=== PATIENT | female | born 1950 | race Caucasian/White ===

== ENCOUNTER 2018-01-01 09:54 | Emergency (ER) | payer MEDICARE, OTHER ==
[~2018-01-01] VITALS: Ht 157.5 cm; Wt 101.2 kg
--- OUTSIDE RECORDS SUMMARY | ~2018-01-01 | XMS | Clinical Summary ---
Demographics + + + | Address | [address] | | | [place] [address] | + + + | Home Phone | | + + + | Preferred Language | Unknown | + + + | Marital Status | | + + + | Scientology Affiliation | CHR | + + + | Race | White | + + + | Ethnic Group | Not or | + + + Author + + + | Author | [facility] | + + + | Organization | [facility] | + + + | Address | Unknown | + + + | Phone | Unavailable | + + + Support + + +---------+ + | Name | Relationship | Address | Phone | + + +---------+ + | Hank Ojeda | ECON | Unknown | | + + +---------+ + Care Team Providers + +------+ + | Care Hearing Care Professional Name | Role | Phone | + +------+ + | Chitra Lopez MD | PP | Unavailable | + +------+ + Source Comments JUDSON is fully live on both [facility] Ambulatory and [facility] InPatient.[facility] Allergies + + + + + + | Active Allergy | Reactions | Severity | Noted | Comments | | | | | Date | | + + + + + + | Penicillin G | Hives | High | 05/28/19 | | | | | | 15 | | + + + + + + | Sulfa (Sulfonamide | Hives | High | 05/28/19 | | | Antibiotics) | | | 15 | | + + + + + + Current Medications + + +-------+---------+------+------+-------+ | Prescription | Sig. | Disp. | Refills | Star | End | Statu | | | | | | t | Date | s | | | | | | Date | | | + + +-------+---------+------+------+-------+ | fexofenadine 60 mg | Take 60 mg by mouth | | | | | Activ | | oral | two times daily. | | | | | e | | tabletIndications: | Indications: | | | | | | | Seasonal Allergic | Seasonal Allergic | | | | | | | Rhinitis | Rhinitis | | | | | | + + +-------+---------+------+------+-------+ | ibuprofen 400 mg | Take 400 mg by mouth | | | | | Activ | | oral | every six hours as | | | | | e | | tabletIndications: | needed. Indications: | | | | | | | Pain | Pain | | | | | | + + +-------+---------+------+------+-------+ Active Problems Not on file Social History + +-------+ +--------+------+ | Tobacco Use | Types | Packs/Day | Years | Date | | | | | Used | | + +-------+ +--------+------+ | Never Smoker | | | | | + +-------+ +--------+------+ + +---+---+---+ | Smokeless Tobacco: | | | | | Never Used | | | | + +---+---+---+ + + +---------+ + | Alcohol Use | Drinks/We | oz/Week | Comments | | | ek | | | + + +---------+ + | No | | | | + + +---------+ + + + + | Sex Assigned at | Date Recorded | | | | + + + | Not on file | | + + + Last Filed Vital Signs + + + + | Vital Sign | Reading | Time Taken | + + + + | Blood Pressure | 124/72 | 05/29/2014 1:49 PM PST | + + + + | Pulse | 84 | 05/29/2014 1:49 PM PST | + + + + | Temperature | 36.4 C (97.5 F) | 05/29/2014 1:35 PM PST | + + + + | Respiratory Rate | 16 | 05/29/2014 1:49 PM PST | + + + + | Oxygen Saturation | 100% | 05/29/2014 1:49 PM PST | + + + + | Inhaled Oxygen | - | - | | Concentration | | | + + + + | Weight | 98 kg (216 lb) | 05/29/2014 11:32 AM PST | + + + + | Height | - | - | + + + + | Body Mass Index | - | - | + + + + Plan of Treatment + + + + + | Health Maintenance | Due Date | Last Done | Comments | + + + + + | HEPATITIS C | | | | | SCREENING | 0 | | | + + + + + | OSTEOPOROSIS | | | | | SCREENING/FOLLOW UP | 0 | | | + + + + + | Diphtheria,Tetanus,P | | | | | ertussis | 9 | | | | (DTaP/Tdap/Td) (1 - | | | | | Tdap) | | | | + + + + + | MAMMOGRAM | | | | | | 0 | | | + + + + + | Zoster (Shingles) | | | | | vaccination (1 of 2) | 0 | | | + + + + + | Pneumococcal (Adult) | | | | | (1 of 2 - PCV13) | 5 | | | + + + + + | INFLUENZA VACCINE | | | | | (FLU SHOT) | 8 | | | + + + + + Results Not on filefrom Last 3 Months Insurance + +--------+ +--------+ + + | Payer | Benefi | Subscriber | Type | Phone | Address | | | t Plan | ID | | | | | | / | | | | | | | Group | | | | | + +--------+ +--------+ + + | MEDICARE | MEDICA | xxxxxxxxxx | Medica | [phone] | [address] | | | RE A & | | re | [phone] | [place] [address] | | | B | | | | | + +--------+ +--------+ + + + +--------+ +--------+ + + | Guarantor Name | Accoun | Relation to | Date | Phone | Billing Address | | | t Type | Patient | of | | | | | | | | | | + +--------+ +--------+ + + | GILBERT OJEDA | Person | Self [birth year] | Home: | [address] | | | al/Fam | | 1950 | [phone] | [place] [address] | | | tio | | | [phone] | | + +--------+ +--------+ + +"
--- OUTSIDE RECORDS SUMMARY | ~2018-01-01 | XMS | Clinical Summary ---
Demographics + + + | Address | [address] | | | [place] [address] | + + + | Home Phone | | + + + | Preferred Language | Unknown | + + + | Marital Status | | + + + | Tenriism Affiliation | CHR | + + + | Race | White | + + + | Ethnic Group | Not or | + + + Author + + + | Author | [facility] | + + + | Organization | [facility] | + + + | Address | Unknown | + + + | Phone | Unavailable | + + + Support + + +---------+ + | Name | Relationship | Address | Phone | + + +---------+ + | Hank Ojeda | ECON | Unknown | | + + +---------+ + Care Team Providers + +------+ + | Care Awning Erector Name | Role | Phone | + +------+ + | Chitra Lopez MD | PP | Unavailable | + +------+ + Source Comments JUDSON is fully live on both [facility] Ambulatory and [facility] InPatient.[facility] Allergies + + + + + [...] | MEDICA | xxxxxxxxxx | Medica | [phone] | [address] | | | RE A & | | re | [phone] | [place] [address] | | | B | | | [...] | 1950 | [phone] | [place] [address] | | | tio | | | [phone] | | + +--------+ +--------+ + +"
--- OUTSIDE RECORDS SUMMARY | ~2018-01-01 | XMS | Clinical Summary ---
Demographics + + + | Address | [address] | | | [place] [address] | + + + | Home Phone | | + + + | Preferred Language | Unknown | + + + | Marital Status | | + + + | Baptist Affiliation | Unknown | + + + | Race | Unknown | + + + | Ethnic Group | Unknown | + + + Author + + + | Author | [facility] | | | and [place] | + + + | Organization | [facility] | | | and [place] | + + + | Address | Unknown | + + + | Phone | Unavailable | + + + Support + + + + + | Name | Relationship | Address | Phone | + + + + + | Hank Ojeda | [place] | [place] | | | | | [address] | | + + + + + Care Team Providers + +------+ + | Care See Supervisor Name | Role | Phone | + [...] +--------+ +---------+ | MEDICARE | MEDICA | [id number] | Medica | +- | | | | RE | | re | [phone] | | | | PART A | | | | | | | AND B | | | | | + +--------+ +--------+ +---------+ | [employer] [place] | [place] | [id number] | Indemn | [id number] | | | | OF | | ity | 1000 | | | | [place] | | | | | | | [...] Self | [birth year] | Home: | [address] | | | al/Fam | | 1950 | [phone] | [place] | | | tio | | | [phone] | [phone] | + +--------+ +--------+ + +
--- OUTSIDE RECORDS SUMMARY | ~2018-01-01 | XMS | Clinical Summary ---
Demographics + + + | Address | [address] | | | [place] [address] | + + + | Home Phone | | + + + | Preferred Language | Unknown | + + + | Marital Status | | + + + | Alevism Affiliation | Unknown | + + + | Race | Unknown | + + + | Ethnic Group | Unknown | + + + Author + + + | Author | [facility] | | | and [place] | + + + | Organization | [facility] | | | and [place] | + + + | Address | Unknown | + + + | Phone | Unavailable | + + + Support + + + + + | Name | Relationship | Address | Phone | + + + + + | Hank Ojeda | [place] | [place] | | | | | [address] | | + + + + + Care Team Providers + +------+ + | Care Spanish Moss Picker Name | Role | Phone | + [...] +--------+ +---------+ | MEDICARE | MEDICA | [id number] | Medica | +- | | | | RE | | re | [phone] | | | | PART A | | | | | | | AND B | | | | | + +--------+ +--------+ +---------+ | [employer] [place] | [place] | [id number] | Indemn | [id number] | | | | OF | | ity | 1000 | | | | [place] | | | | | | | [...] Self | [birth year] | Home: | [address] [facility] | | | al/Fam | | 1950 | [phone] | [place] | | | tio | | | [phone] | [address] | + +--------+ +--------+ + +
--- OUTSIDE RECORDS SUMMARY | ~2018-01-01 | XMS | Clinical Summary ---
Demographics + + + | Address | [address] | | | [place] [address] | + + + | Home Phone | | + + + | Preferred Language | Unknown | + + + | Marital Status | | + + + | Tenriism Affiliation | 1065 | + + + | Race | Unknown | + + + | Ethnic Group | Unknown | + + + Author + + + | Author | [facility] | + + + | Organization | [facility] | + + + | Address | Unknown | + + + | Phone | Unavailable | + + + Support + + + + + | Name | Relationship | Address | Phone | + + + + + | Hank Ojeda | ECON | [place] | | | | | [address] | | + + + + + | Detailed,Message | ECON | [address] | | | | | [place] | | | | | [address] | | + + + + + | Nely Ojeda | ECON | Unknown | | + + + + + | Zoie Quezada | ECON | Unknown | | + + + + + Care Team Providers + +------+ + | Care Cardiovascular Surgical Tech Name | Role | Phone | + [...] +------+-------+ + | MEDICARE | MEDICA | [id number] | | | [address] | | | RE | | | | [place] [address] | | | IP-OP | | | | | + +--------+ +------+-------+ + | [employer] [place] | MUTUAL | [id number] | | | | | | [place] | | | | | | | [place] | | | | | + +--------+ [...] | [birth year] | Home: | [address] | | | al/Fam | | 1950 | [phone] | [place] | | | tio | | | [phone] | [phone] | + +--------+ +--------+ + +
--- OUTSIDE RECORDS SUMMARY | ~2018-01-01 | XMS | Clinical Summary ---
Demographics + + + | Address | [address] | | | [place] [address] | + + + | Home Phone | | + + + | Preferred Language | Unknown | + + + | Marital Status | | + + + | Adventism Affiliation | 1065 | + + + | Race | Unknown | + + + | Ethnic Group | Unknown | + + + Author + + + | Author | [facility] | + + + | Organization | [facility] | + + + | Address | Unknown | + + + | Phone | Unavailable | + + + Support + + + + + | Name | Relationship | Address | Phone | + + + + + | Hank Ojeda | ECON | [place] | | | | | [address] | | + + + + + | Detailed,Message | ECON | [address] | | | | | [place] | | | | | [address] | | + + + + + | Nely Ojeda | ECON | Unknown | | + + + + + | Zoie Quezada | ECON | Unknown | | + + + + + Care Team Providers + +------+ + | Care Supervisor Rubber Covering Name | Role | Phone | + [...] +------+-------+ + | MEDICARE | MEDICA | [id number] | | | [address] | | | RE | | | | [place] [address] | | | IP-OP | | | | | + +--------+ +------+-------+ + | [employer] [place] | MUTUAL | [id number] | | | | | | [place] | | | | | | | [place] | | | | | + +--------+ [...] | | al/Fam | | 1950 | [phone] | [place] | | | tio | | | [phone] | [phone] | + +--------+ +--------+ + +
[2018-01-01] MEDS ORDERED: METFORMIN HCL500 MG PO (10:11)
[2018-01-01] MEDS ORDERED: LEVOTHYROXINE50 MCG PO (10:11)
[2018-01-01] MEDS ORDERED: VENTOLIN HFA18 GM INH (12:08)
--- NOTE | 2018-01-01 20:31 | EKG ---
[facility] [address] [facility] [place] [address] Signed Sinus rhythm with 1st degree AV block Left axis deviation Incomplete left bundle branch block Abnormal ECG No previous ECGs available Confirmed by JIM HOUSE MD ([id number]) on 01/01/2018 8:31:15 PM Electronically Signed By: JIM HOUSE MD 01/01/182030 PATIENT NAME: GILBERT OJEDA DIANA Electrocardiogram DATE OF : 50 PHYSICIAN: JIM HOUSE MD REPORT #: [id number] REPORT IS CONFIDENTIAL AND NOT TO BE RELEASED WITHOUT AUTHORIZATION
== END 2018-01-01 12:08 | disposition home or self-care (01) ==
LOC: ED 09:54
DX: R07.9 Chest pain, unspecified (principal); R06.02 Shortness of breath; E11.9 Type 2 diabetes mellitus without complications; E03.9 Hypothyroidism, unspecified; Z88.0 Allergy status to penicillin; Z88.2 Allergy status to sulfonamides; Z88.1 Allergy status to other antibiotic agents; Z79.84 Long term (current) use of oral hypoglycemic drugs; Z79.899 Other long term (current) drug therapy
CPT/HCPCS: 71260; 80053; 81001; 84484; 85025; 85379; 93005; 93010; 99285; Q9967

== ENCOUNTER 2018-01-16 11:02 | Emergency (ER) | payer MEDICARE, OTHER ==
[~2018-01-16] VITALS: Ht 157.5 cm; Wt 101.2 kg
--- OUTSIDE RECORDS SUMMARY | ~2018-01-16 | XMS | Clinical Summary ---
Demographics + + + | Address | [address] | | | [place] [address] | + + + | Home Phone | | + + + | Preferred Language | Unknown | + + + | Marital Status | | + + + | Restorationist Affiliation | Unknown | + + + | Race | Unknown | + + + | Ethnic Group | Unknown | + + + Author + + + | Author | [facility] | | | and [place] | + + + | Organization | [facility] | | | and [place] | + + + | Address | Unknown | + + + | Phone | Unavailable | + + + Support + + + + + | Name | Relationship | Address | Phone | + + + + + | Hank Ojeda | [place] | [place] | | | | | [address] | | + + + + + Care Team Providers + +------+ + | Care Civil Engineering Professor Name | Role | Phone | + +------+ + | Mickey Moreno | PP | | | MD | | | + +------+ + Allergies + + + + + + | Active Allergy | Reactions | Severity | Noted | Comments | | | | | Date | | + + + + + + | Cephalexin | | | 04/06/20 | | | | | | 16 | | + + + + + + | Penicillins | | | 04/06/20 | | | | | | 16 | | + + + + + + | Sulfa Antibiotics | | | 04/06/20 | | | | | | 16 | | + + + + + + Current Medications + + +-------+---------+------+------+-------+ | Prescription | Sig. | Disp. | Refills | Star | End | Statu | | | | | | t | Date | s | | | | | | Date | | | + + +-------+---------+------+------+-------+ | ibuprofen (ADVIL, | Take 200 mg by mouth | | | | | Activ | | MOTRIN) 200 mg | every 6 hours as | | | | | e | | tablet | needed for Pain. | | | | | | + + +-------+---------+------+------+-------+ | fexofenadine | Take 180 mg by mouth | | | | | Activ | | (STEPHANY ALLERGY) | Daily. | | | | | e | | 180 mg tablet | | | | | | | + + +-------+---------+------+------+-------+ | Multiple | Take 1 tablet by | | | | | Activ | | Vitamins-Minerals | mouth Daily. | | | | | e | | (MULTIVITAMIN ADULT | | | | | | | | PO) | | | | | | | + + +-------+---------+------+------+-------+ | benzonatate | Take 100 mg by mouth | | | | | Activ | | (TESSALON) 100 mg | 3 times daily as | | | | | e | | capsule | needed for Cough. | | | | | | + + +-------+---------+------+------+-------+ | azithromycin | Take 250 mg by mouth | | | | | Activ | | (ZITHROMAX) 250 mg | Daily. | | | | | e | | tablet | | | | | | | + + +-------+---------+------+------+-------+ | pseudoePHEDrine | Take 30 mg by mouth | | | | | Activ | | (SUDOGEST) 30 mg | every 4 hours as | | | | | e | | tablet | needed for | | | | | | | | Congestion. | | | | | | + + +-------+---------+------+------+-------+ | albuterol 90 | Inhale 2 puffs into | | | | | Activ | | mcg/puff inhaler | the lungs every 6 | | | | | e | | | hours as needed for | | | | | | | | Wheezing. | | | | | | + + +-------+---------+------+------+-------+ | KRILL OIL PO | Take by mouth. | | | | | Activ | | | | | | | | e | + + +-------+---------+------+------+-------+ Active Problems + + + | Problem | Noted Date | + + + | Obstructive sleep apnea | 04/18/2016 | + + + Family History + + +------+ + | Medical History | Relation | Name | Comments | + + +------+ + | Sleep Apnea | Father | | | + + +------+ + + +------+--------+ + | Relation | Name | Status | Comments | + +------+--------+ + | Father | | | | + +------+--------+ + Social History + +-------+ +--------+------+ | Tobacco Use | Types | Packs/Day | Years | Date | | | | | Used | | + +-------+ +--------+------+ | Never Smoker | | | | | + +-------+ +--------+------+ + + +---------+ + | Alcohol Use [...] + + + | Blood Pressure | 130/72 | 12/20/2016 1334 PDT | + + + + | Pulse | 90 | 12/20/20164 PDT | + + + + | Temperature | - | - | + + + + | Respiratory Rate | 16 | 12/20/20164 PDT | + + + + | Oxygen Saturation | 96% | 12/20/20161333 PDT | + + + + | Inhaled Oxygen | - | - | | Concentration | | | + + + + | Weight | 105.4 kg (232 lb 4.8 | 12/20/2016 1334 PDT | | | oz) | | + + + + | Height | 157.5 cm (5' 2") | 04/18/2016 0907 PST | + + + + | Body Mass Index | 42.49 | 12/20/20164 PDT | + + + + Plan of Treatment + + + + + | Health Maintenance | Due Date | Last Done | Comments | + + + + + | Hepatitis C | | | | | Screening | 0 | | | + + + + + | Vaccine: | | | | | Dtap/Tdap/Td (1 - | 9 | | | | Tdap) | | | | + + + + + | BREAST CANCER | | | | | SCREENING (MAMM Q2 | 0 | | | | YEARS 50-74) | | | | + + + + + | Colorectal Cancer | | | | | Screening | 0 | | | | (Colonoscopy) | | | | + + + + + | Vaccine: Zoster (1 | | | | | of 2) | 0 | | | + + + + + | Vaccine: | | | | | Pneumococcal 65+ | 5 | | | | Low/Medium Risk (1 | | | | | of 2 - PCV13) | | | | + + + + + | Vaccine: Influenza | | | | | (#1) | 8 | | | + + + + + Results Not on filefrom Last 3 Months Insurance + +--------+ +--------+ +---------+ | Payer | Benefi | Subscriber | Type | Phone | Address | | | t Plan | ID | | | | | | / | | | | | | | Group | | | | | + +--------+ +--------+ +---------+ | MEDICARE | MEDICA | [id number] | Medica | [phone] | | | | RE | | re | [phone] | | | | PART A | | | | | | | AND B | | | | | + +--------+ +--------+ +---------+ | [employer] [place] | [place] | [id number] | Indemn | [phone] | | | | OF | | ity | 1000 | | | | [place] | | | | | | | MDCR | | | | | | | SUPPL | | | | | + +--------+ +--------+ +---------+ + +--------+ +--------+ + + | Guarantor Name | Accoun | Relation to | Date | Phone | Billing Address | | | t Type | Patient | of | | | | | | | | | | + +--------+ +--------+ + + | GILBERT OJEDA | Person | Self [birth year] | Home: | [address] | | | al/Fam | | 1950 | [phone] | [place] | | | t[place] | | | [phone] | [phone] | + +--------+ +--------+ + +
--- OUTSIDE RECORDS SUMMARY | ~2018-01-16 | XMS | Clinical Summary ---
Demographics + + + | Address | [address] | | | [place] [address] | + + + | Home Phone | | + + + | Preferred Language | Unknown | + + + | Marital Status | | + + + | Taoist Affiliation | Unknown | + + + | Race | Unknown | + + + | Ethnic Group | Unknown | + + + Author + + + | Author | [facility] | | | and [place] | + + + | Organization | [facility] | | | and [place] | + + + | Address | Unknown | + + + | Phone | Unavailable | + + + Support + + + + + | Name | Relationship | Address | Phone | + + + + + | Hank Ojeda | [place] | [place] | | | | | [address] | | + + + + + Care Team Providers + +------+ + | Care Convict Guard Name | Role | Phone | + [...] +--------+ +---------+ | MEDICARE | MEDICA | [id number] | Medica | [phone] | | | | RE | | re | [phone] | | | | PART A | | | | | | | AND B | | | | | + +--------+ +--------+ +---------+ | [employer] [place] | [place] | [id number] | Indemn | [phone] | | | | OF | | ity | [address] | | | | [place] | | | | | | | [...] | | al/Fam | | 1950 | [phone] | [place] | | | tio | | | [phone] | [phone] | + +--------+ +--------+ + +
--- OUTSIDE RECORDS SUMMARY | ~2018-01-16 | XMS | Clinical Summary ---
Demographics + + + | Address | [address] | | | [place] [address] | + + + | Home Phone | | + + + | Preferred Language | Unknown | + + + | Marital Status | | + + + | Sabianism Affiliation | 1065 | + + + | Race | Unknown | + + + | Ethnic Group | Unknown | + + + Author + + + | Author | [facility] | + + + | Organization | [facility] | + + + | Address | Unknown | + + + | Phone | Unavailable | + + + Support + + + + + | Name | Relationship | Address | Phone | + + + + + | Hank Ojeda | ECON | [place] | | | | | [address] | | + + + + + | Detailed,Message | ECON | [address] | | | | | [place] | | | | | [address] | | + + + + + | Nely Ojeda | ECON | Unknown | | + + + + + | Zoie Quezada | ECON | Unknown | | + + + + + Care Team Providers + +------+ + | Care Commercial Fishing Vessel Operator Name | Role | Phone | + +------+ + | Mickey Moreno MD | PP | | + +------+ + Allergies + + + + + + | Active Allergy | Reactions | Severity | Noted | Comments | | | | | Date | | + + + + + + | Cephalexin | Hives | High | 06/22/19 | | | | | | 15 | | + + + + + + | Penicillins | Hives | High | 06/22/19 | | | | | | 15 | | + + + + + + | Sulfa Antibiotics | Hives | High | 06/22/19 | | | | | | 15 | | + + + + + + Current Medications + + +-------+---------+------+------+-------+ | Prescription | Sig. | Disp. | Refills | Star | End | Statu | | | | | | t | Date | s | | | | | | Date | | | + + +-------+---------+------+------+-------+ | acetaminophen | Take 500 mg by mouth | | | | | Activ | | (TYLENOL) 500 MG | daily. | | | | | e | | tablet | | | | | | | + + +-------+---------+------+------+-------+ | cetirizine | Take 10 mg by mouth | | | | | Activ | | (ZYRTEC) 10 MG | daily. | | | | | e | | tablet | | | | | | | + + +-------+---------+------+------+-------+ | therapeutic | Take 1 tablet by | | | | | Activ | | multivitamin-mineral | mouth daily. | | | | | e | | s (THERAGRAN-M) | | | | | | | | tablet | | | | | | | + + +-------+---------+------+------+-------+ | ibuprofen (ADVIL) | Take 200 mg by mouth | | | | | Activ | | 200 MG tablet | every 6 (six) hours | | | | | e | | | as needed for Pain. | | | | | | + + +-------+---------+------+------+-------+ | fexofenadine | Take 30 mg by mouth | | | | | Activ | | (STEPHANY) 30 MG | as needed. | | | | | e | | tablet | | | | | | | + + +-------+---------+------+------+-------+ | clarithromycin | Take 500 mg by mouth | | | | | Activ | | (BIAXIN) 500 MG | 2 (two) times | | | | | e | | tablet | daily. | | | | | | + + +-------+---------+------+------+-------+ | albuterol | Inhale 2 puffs into | | | | | Activ | | (PROVENTIL | the lungs as needed | | | | | e | | HFA;VENTOLIN HFA) | for Wheezing. | | | | | | | 108 (90 BASE) | | | | | | | | MCG/ACT inhaler | | | | | | | + + +-------+---------+------+------+-------+ Active Problems + + + | Problem | Noted Date | + + + | Vitamin D deficiency | 07/20/2016 | + + + | Sarcoid | 07/20/2014 | + + + | Lymphadenopathy, mediastinal | 06/22/2014 | + + + Family History + + +------+ + | Medical History | Relation | Name | Comments | + + +------+ + | Diabetes type II | Brother | | | + + +------+ + | Heart disease | Brother | | | + + +------+ + | Diabetes type II | Father | | | + + +------+ + | Stroke | Father | | | + + +------+ + | Sudden | Father | | | + + +------+ + + +------+--------+ + | Relation | Name | Status | Comments | + +------+--------+ + | Brother | | | | + +------+--------+ + | Father | [...] + + + | Blood Pressure | 119/73 | 02/21/2017 2:04 PM PDT | + + + + | Pulse | 80 | 02/21/2017 2:04 PM PDT | + + + + | Temperature | 36.4 C (97.5 F) | 02/21/2017 2:04 PM PDT | + + + + | Respiratory Rate | - | - | + + + + | Oxygen Saturation | 96% | 02/21/2017 2:04 PM PDT | + + + + | Inhaled Oxygen | - | - | | Concentration | | | + + + + | Weight | 104.3 kg (230 lb) | 02/21/2017 2:04 PM PDT | + + + + | Height | 157.5 cm (5' 2") | 02/21/2017 2:04 PM PDT | + + + + | Body Mass Index | 42.07 | 02/21/2017 2:04 PM PDT | + + + + Plan of Treatment + + + + + | Health Maintenance | Due Date | Last Done | Comments | + + + + + | Vaccine: | | | | | Dtap/Tdap/Td (1 - | 9 | | | | Tdap) | | | | + + + + + | Breast Cancer | | | | | Screening | 0 | | | | (Mammogram) | | | | + + + + + | Colon Cancer | | | | | Screening | 0 | | | | (Colonoscopy) | | | | + + + + + | Vaccine: Zoster (1 | | | | | of 2) | 0 | | | + + + + + | DEXA SCAN SCREENING | | | | | | 5 | | | + + [...] filefrom Last 3 Months Insurance + +--------+ +------+-------+ + | Payer | Benefi | Subscriber | Type | Phone | Address | | | t Plan | ID | | | | | | / | | | | | | | Group | | | | | + +--------+ +------+-------+ + | MEDICARE | MEDICA | [id number] | | | [phone] | | | RE | | | | [place] [id number] | | | IP-OP | | | | | + +--------+ +------+-------+ + | [employer] | MUTUAL | [id number] | | | | | | OF | | | | | | | [employer] | | | | | + +--------+ +------+-------+ + + +--------+ +--------+ + + | Guarantor Name | Accoun | Relation to | Date | Phone | Billing Address | | | t Type | Patient | of | | | | | | | | | | + +--------+ +--------+ + + | GILBERT OJEDA | Person | Self [birth year] Home: | [address] | | | al/Fam | | 1950 | [phone] [place] | | | tio | | | [phone] | [phone] | + +--------+ +--------+ + +
--- OUTSIDE RECORDS SUMMARY | ~2018-01-16 | XMS | Clinical Summary ---
Demographics + + + | Address | [address] | | | [place] [address] | + + + | Home Phone | | + + + | Preferred Language | Unknown | + + + | Marital Status | | + + + | Restorationist Affiliation | CHR | + + + | Race | White | + + + | Ethnic Group | Not or | + + + Author + + + | Author | [facility] | + + + | Organization | [facility] | + + + | Address | Unknown | + + + | Phone | Unavailable | + + + Support + + +---------+ + | Name | Relationship | Address | Phone | + + +---------+ + | Hank Ojeda | ECON | Unknown | | + + +---------+ + Care Team Providers + +------+ + | Care Toll Test Worker Name | Role | Phone | + +------+ + | Chitra Lopez MD | PP | Unavailable | + +------+ + Source Comments [facility] is fully live on both [facility] and [facility] InPatient.[facility] Allergies + + + + + + [...] | MEDICA | xxxxxxxxxx | Medica | [phone] | [phone] | | | RE A & | | re | [phone] | [place] [address] | | | B | | | [...] | 1950 | [phone] | [place] [address] | | | tio | | | [phone] | | + +--------+ +--------+ + +"
--- OUTSIDE RECORDS SUMMARY | ~2018-01-16 | XMS | Clinical Summary ---
Demographics + + + | Address | [address] | | | [place] [address] | + + + | Home Phone | | + + + | Preferred Language | Unknown | + + + | Marital Status | | + + + | Christianity Affiliation | CHR | + + + | Race | White | + + + | Ethnic Group | Not or | + + + Author + + + | Author | [facility] | + + + | Organization | [facility] | + + + | Address | Unknown | + + + | Phone | Unavailable | + + + Support + + +---------+ + | Name | Relationship | Address | Phone | + + +---------+ + | Hank Ojeda | ECON | Unknown | | + + +---------+ + Care Team Providers + +------+ + | Care Seed Sorter Name | Role | Phone | + +------+ + | Chitra Lopez MD | PP | Unavailable | + +------+ + Source Comments [facility]UDSON is fully live on both [facility] Ambulatory and [facility] InPatient.[facility] Allergies + + + + + [...] | MEDICA | xxxxxxxxxx | Medica | [phone] | [phone] | | | RE A & | | re | [phone] | [place] [address] | | | B | | | [...] | 1950 | [phone] | [place] [address] | | | tio | | | [phone] | | + +--------+ +--------+ + +"
--- OUTSIDE RECORDS SUMMARY | ~2018-01-16 | XMS | Clinical Summary ---
Demographics + + + | Address | [address] | | | [place] [address] | + + + | Home Phone | | + + + | Preferred Language | Unknown | + + + | Marital Status | | + + + | Latter-Day Affiliation | [phone] | + + + | Race | Unknown | + + + | Ethnic Group | Unknown | + + + Author + + + | Author | [facility] | + + + | Organization | [facility] | + + + | Address | Unknown | + + + | Phone | Unavailable | + + + Support + + + + + | Name | Relationship | Address | Phone | + + + + + | Hank Ojeda | ECON | [place] | | | | | [phone] | | + + + + + | Detailed,Message | ECON | [address] | | | | | [place] | | | | | [phone] | | + + + + + | Nely Ojeda | ECON | Unknown | | + + + + + | Zoie Quezada | ECON | Unknown | | + + + + + Care Team Providers + +------+ + | Care Ladle Operator Name | Role | Phone | [...] +------+-------+ + | MEDICARE | MEDICA | [id number] | | | [phone] | | | RE | | | | [place] [phone] | | | IP-OP | | | | | + +--------+ +------+-------+ + | [employer] | MUTUAL | [id number] | | | | | | [place] | | | | | | | APACHE | | | | | + +--------+ [...] | | al/Fam | | 1950 | [phone] | [place] | | | tio | | | [phone] | [phone] | + +--------+ +--------+ + +
[~2018-01-16 11:02] MED LIST: LEVOTHYROXINE50 MCG PO; METFORMIN HCL500 MG PO; VENTOLIN HFA18 GM INH
[2018-01-16] MEDS ORDERED: PREDNISONE50 MG PO (11:16)
[2018-01-16] MEDS ORDERED: LEVOFLOXACIN500 MG PO (11:16)
[2018-01-16] MEDS ORDERED: FLUTICASONE PRO16 GM NAS (11:17)
== END 2018-01-16 11:30 | disposition home or self-care (01) ==
LOC: ED 11:02
DX: M25.561 Pain in right knee (principal)